=== PATIENT | female | born 1975 | race African-American/Black ===

== ENCOUNTER → 2016-03-30 | Outpatient (CLI) | payer MEDICARE, MEDICAID ==
--- NOTE | 2016-03-31 13:53 | XCELERA REPORT ---
[address] [address] Lower Extremity Venous Evaluation Name: JOSE KRAUSE Age: 40 yrs Gender: Female : 1975 Patient Status: Outpatient Patient Location: Study Date: 03/30/2016 11:47 AM Procedure: Color flow and duplex imaging of the veins of the right lower extremity as well as the left Common Femoral vein. Reason For Study: LLE SWELLING Ordering Physician: SYBIL FLORES Performed By: Taryn Salamanca Right Sided Venous Evaluation Normal vessel filling wall to wall, compression and augmentation as well as Colour flow down to the infrageniculate veins. Difficult to image veins due to body habitus. Left Sided Venous Evaluation The left common femoral vein is fully compressible. Spontaneous and phasic flow is present in the left common femoral vein. Interpretation Summary No duplex evidence of DVT or obstruction in the right lower extremity nor in the left Common Femoral vein. : SYBIL FLORES > Mario Garcia
== END ==
LOC: SP 11:28
PROVIDERS: ATTEND Internal Medicine
DX: R22.41 Localized swelling, mass and lump, right lower limb (principal)
CPT/HCPCS: 93971

== ENCOUNTER → 2016-06-26 | Outpatient (CLI) | payer MEDICARE, MEDICAID | LOC: LAB 13:29 | PROVIDERS: ATTEND Psychiatry & Neurology Psychiatry | DX: F31.4 Bipolar disorder, current episode depressed, severe, without psychotic features (principal); Z79.899 Other long term (current) drug therapy | CPT/HCPCS: 36415; 80156 ==

== ENCOUNTER 2016-12-26 14:34 | Emergency (ER) | payer MEDICARE, MEDICAID ==
[2016-12-26] MEDS ORDERED: LIDOCAINE 1% INJ-PF (10 MG/ML) 30 ML SDV INJ ONE (15:53)
[2016-12-26] MEDS ORDERED: BUPIVACAINE HCL 0.5 % INJ/PF 30 ML SDV INJ ONE (15:53)
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
[2016-12-26 17:05] VITALS: BP 135/80
== END 2016-12-26 17:05 | disposition home or self-care (01) ==
LOC: ER 14:34
PROC: 3E0T3BZ Introduction of Anesthetic Agent into Peripheral Nerves and Plexi, Percutaneous Approach (ICD-10-PCS; principal; 2016-12-26)
DX: R09.81 Nasal congestion (principal); K08.89 Other specified disorders of teeth and supporting structures; R09.89 Other specified symptoms and signs involving the circulatory and respiratory systems; R05 Cough; Z79.899 Other long term (current) drug therapy; F17.210 Nicotine dependence, cigarettes, uncomplicated
CPT/HCPCS: 99283; 64400; J3490

== ENCOUNTER 2017-02-11 23:39 | Emergency (ER) | payer MEDICARE, MEDICAID ==
[2017-02-11 23:44] VITALS: BP 151/80
--- NOTE | 2017-02-11 23:44 | ER Document Report ---
HPI - HPI Patient complains to provider of: tooth pain Onset: Other - december Pain Level: 5 Context: 41-year-old female complaining of worsening dental pain that she has had since December. She has known dental decay and tried to see a dentist on Wednesday and she said they would not be open to help her. Says she has been taking Advil for pain and it is not helping she was unable to sleep last night. She is moaning, crying, and rocking in pain Associated Symptoms: None Exacerbated by: Denies Relieved by: Denies Similar symptoms previously: Yes Recently seen / treated by doctor: No - ROS ROS below otherwise negative: Yes Systems Reviewed and Negative: Yes All other systems reviewed and negative - REPRODUCTIVE LMP: na Reproductive: DENIES: : Past Medical History - General Information source: Patient - Social History Smoking Status: Current Every Day Smoker Frequency of alcohol use: None Drug Abuse: None Lives with: Family Family History: Reviewed & Not Pertinent Neurological Medical History: Reports: Hx Migraine Renal/ Medical History: Denies: Hx Peritoneal Dialysis Musculoskeltal Medical History: Reports Hx Musculoskeletal Deformity, Reports Hx Musculoskeletal Trauma Psychiatric Medical History: Reports: Hx Bipolar Disorder, Hx Depression - mainic Surgical Hx: Negative - Immunizations Immunizations up to date: Yes Hx Diphtheria, Pertussis, Tetanus Vaccination: Yes Vertical Provider Document - CONSTITUTIONAL Agree With Documented VS: Yes Exam Limitations: No Limitations - INFECTION CONTROL TRAVEL OUTSIDE OF THE [place] IN LAST 30 DAYS: No - HEENT HEENT: Normocephalic Notes: decayed cuspids lower right and left, no abscess. - NECK Neck: Supple. negative: Lymphadenopathy-Left, Lymphadenopathy-Right - MUSCULOSKELETAL/EXTREMETIES Musculoskeletal/Extremeties: SHAHNAZ KAGN - NEURO Level of Consciousness: Awake, Alert, Appropriate - DERM Integumentary: Warm, Dry Course - Re-evaluation Re-evalutation: 02/12/17 00:06 Patient states she does not have any pain medication at home and I asked her about the 120 hydrocodone that she gets every month and she said she ran out on February 08 and she should not of run out until February 16. She says she had to take more than usual. She has chronic back pain. Discharge - Discharge Clinical Impression: Pain, dental, Dental decay Condition: Good Disposition: HOME, SELF-CARE Instructions: Clindamycin ([facility]), Toothache ([facility]), Use of [id number] Ibuprofen ([facility]), Topical Lidocaine ([facility]), Dentist Additional Instructions: see the dentist topical lidocaine to lessen the pain antibiotics over the counter motrin to er any fever or swelling Prescriptions: Clindamycin HCl [Cleocin 150 mg Capsule] 300 mg PO TID #42 capsule Referrals: SYBIL FLORES MD [Primary Care Provider] - Follow up as needed
[2017-02-11] MEDS ORDERED: CLINDAMYCIN HCL 150 MG CAPSULE PO ONE (23:59)
[2017-02-11] MEDS ORDERED: LIDOCAINE 2% VISCOUS SOLN 20 ML UDCUP PO ONE (23:59)
== END 2017-02-12 00:44 | disposition home or self-care (01) ==
LOC: ER 23:39
DX: K02.9 Dental caries, unspecified (principal); K08.89 Other specified disorders of teeth and supporting structures; F17.200 Nicotine dependence, unspecified, uncomplicated; M54.9 Dorsalgia, unspecified; G89.29 Other chronic pain; Z91.14 Patient's other noncompliance with medication regimen
CPT/HCPCS: 99282; A9270; J3490

== ENCOUNTER → 2017-03-16 | Outpatient (CLI) | payer MEDICARE, MEDICAID | LOC: RAD 14:35 | PROVIDERS: ATTEND Internal Medicine | DX: R10.84 Generalized abdominal pain (principal) | CPT/HCPCS: 74177; 82565 ==

== ENCOUNTER 2017-12-01 12:14 | Emergency (ER) | payer MEDICAID, MEDICARE ==
[2017-12-01 12:24] VITALS: BP 137/83
--- NOTE | 2017-12-01 13:01 | ER Document Report ---
ED Medical Screen (RME) - General Chief Complaint: Abdominal Pain Stated Complaint: ABDOMINAL PAIN Time Seen by Provider: 12/01/17 12:55 TRAVEL OUTSIDE OF THE [place] IN LAST 30 DAYS: No - HPI Notes: 12/01/17 13:00 Vaginal odor lower abdominal pain stating "smells like something something has " denies any foreign bodies in the vagina denies any sexual intercourse - Related Data Allergies/Adverse Reactions: amoxicillin [Amoxicillin] Allergy (Mild, Verified 12/01/17 12:16) Past Medical History - Social History Chew tobacco use (# tins/day): No Frequency of alcohol use: Occasional Drug Abuse: Marijuana - Past Medical History Cardiac Medical History: Denies: Hx Coronary Artery Disease, Hx Heart Attack, Hx Hypertension Pulmonary Medical History: Denies: Hx Asthma, Hx Bronchitis, Hx COPD, Hx Pneumonia Neurological Medical History: Reports: Hx Migraine. Denies: Hx Cerebrovascular Accident, Hx Seizures Renal/ Medical History: Denies: Hx Peritoneal Dialysis Musculoskeltal Medical History: Denies Hx Arthritis, Reports Hx Musculoskeletal Deformity, Reports Hx Musculoskeletal Trauma Psychiatric Medical History: Reports: Hx Bipolar Disorder, Hx Depression - mainic - Immunizations Immunizations up to date: Yes Hx Diphtheria, Pertussis, Tetanus Vaccination: Yes Review of Systems - Review of Systems Gastrointestinal: Abdominal pain Female Genitourinary: Vaginal odor Physical Exam - Vital signs Vitals: Temp Pulse Resp BP Pulse Ox 98.0 F 75 20 137/83 H 100 12/01/17 12:22 12/01/17 12:22 12/01/17 12:22 12/01/17 12:22 12/01/17 12:22 - Respiratory Respiratory status: No respiratory distress Chest status: Nontender Breath sounds: Normal Chest palpation: Normal - Cardiovascular Rhythm: Regular Heart sounds: Normal auscultation Course - Vital Signs Vital signs: Temp Pulse Resp BP Pulse Ox 98.0 F 75 20 137/83 H 100 12/01/17 12:22 12/01/17 12:22 12/01/17 12:22 12/01/17 12:22 12/01/17 12:22 Doctor's Discharge - Discharge Referrals: SYBIL FLORES MD [Primary Care Provider] - Follow up as needed
[2017-12-01 13:54] LABS: HEMATOCRIT 38.7 % (36.0-47.0); MEAN CORPUSCULAR HEMOGLOBIN 31.7 pg (27.0-33.4); MEAN CORPUSCULAR HGB CONC 33.5 g/dL (32.0-36.0); MEAN CORPUSCULAR VOLUME 95 fl (80-97); PLATELET COUNT 327 10^3/uL (150-450); RED BLOOD COUNT 4.09 10^6/uL (3.72-5.28); RED CELL DISTRIBUTION WIDTH 13.8 % (11.5-14.0); WHITE BLOOD COUNT 9.2 10^3/uL (4.0-10.5)
[2017-12-01 14:03] LABS: ALANINE AMINOTRANSFERASE 15 U/L (9-52); ALBUMIN 4.5 g/dL (3.5-5.0); ALKALINE PHOSPHATASE 72 U/L (38-126); ANION GAP 10 (5-19); ASPARTATE AMINO TRANSFERASE 21 U/L (14-36); BILIRUBIN,DIRECT 0.2 mg/dL (0.0-0.4); BILIRUBIN,TOTAL 0.8 mg/dL (0.2-1.3); BLOOD UREA NITROGEN 12 mg/dL (7-20); CALCIUM 9.5 mg/dL (8.4-10.2); CARBON DIOXIDE 23 mmol/L (22-30); CHLORIDE 106 mmol/L (98-107); GLUCOSE 78 mg/dL (75-110); POTASSIUM 4.1 mmol/L (3.6-5.0); SODIUM 139.2 mmol/L (137-145); TOTAL PROTEIN 7.6 g/dL (6.3-8.2)
[2017-12-01 14:17] LABS: ABSOLUTE LYMPHOCYTES# (MANUAL) 5.5 10^3/uL (0.5-4.7); ABSOLUTE MONOCYTES # (MANUAL) 0.2 10^3/uL (0.1-1.4); ABSOLUTE NEUTROPHILS# (MANUAL) 3.2 10^3/uL (1.7-8.2); BASOPHILS % (MANUAL) 0 % (0-2); EOSINOPHILS % (MANUAL) 3 % (0-6); LYMPHOCYTES % (MANUAL) 59 % (13-45); MONOCYTES % (MANUAL) 2 % (3-13); SEGMENTED NEUTROPHILS % (MAN) 35 % (42-78); TOTAL CELLS COUNTED 100
[2017-12-01 14:18] LABS: PLATELET COMMENT ADEQUATE; RBC MORPHOLOGY COMMENT NORMO-CYTIC/CHROMIC
--- NOTE | 2017-12-01 15:01 | ER Document Report ---
ED GI/ - General Chief Complaint: Abdominal Pain Stated Complaint: ABDOMINAL PAIN Time Seen by Provider: 12/01/17 12:55 Mode of Arrival: Ambulatory Information source: Patient Notes: 42-year-old female presents to ED for complaint of abdominal pain pelvic pain and smells like in her vagina. She denies use of any foreign body usage in her vagina or any sexual intercourse. Alert and oriented respirations regular and unlabored speaking in full sentences. TRAVEL OUTSIDE OF THE [place] IN LAST 30 DAYS: No - HPI Patient complains to provider of: Abdominal pain, Pelvic pain, Vaginal discharge Onset: Other - 4 days Timing/Duration: Gradual Quality of pain: Achy, Sharp, Throbbing Severity at maximum: Moderate Severity in ED: Moderate Pain Level: 4 Location: LLQ, RLQ, Suprapubic, Pelvis Vaginal bleeding (Compared to normal period): None Associated symptoms: Nausea, Urinary frequency, Vaginal discharge Exacerbated by: Movement Relieved by: Denies Similar symptoms previously: Yes Recently seen / treated by doctor: No - Related Data Allergies/Adverse Reactions: amoxicillin [Amoxicillin] Allergy (Mild, Verified 12/01/17 12:16) Past Medical History - General Information source: Patient - Social History Smoking Status: Current Every Day Smoker Chew tobacco use (# tins/day): No Frequency of alcohol use: Occasional Drug Abuse: Marijuana Family History: Reviewed & Not Pertinent Patient has suicidal ideation: No Patient has homicidal ideation: No - Past Medical History Cardiac Medical History: Reports: None Pulmonary Medical History: Reports: None EENT Medical History: Reports: None Neurological Medical History: Reports: Hx Migraine Endocrine Medical History: Reports: None Renal/ Medical History: Reports: None Malignancy Medical History: Reports: None GI Medical History: Reports: None Musculoskeletal Medical History: Reports Hx Musculoskeletal Deformity, Reports Hx Musculoskeletal Trauma Skin Medical History: Reports None Psychiatric Medical History: Reports: Hx Bipolar Disorder, Hx Depression - mainic Traumatic Medical History: Reports: None Infectious Medical History: Reports: None Surgical Hx: Negative Past Surgical History: Reports: None - Immunizations Immunizations up to date: Yes Hx Diphtheria, Pertussis, Tetanus Vaccination: Yes Review of Systems - Review of Systems Constitutional: No symptoms reported EENT: No symptoms reported Cardiovascular: No symptoms reported Respiratory: No symptoms reported Gastrointestinal: No symptoms reported Genitourinary: No symptoms reported Female Genitourinary: No symptoms reported Musculoskeletal: No symptoms reported Skin: No symptoms reported Hematologic/Lymphatic: No symptoms reported Neurological/Psychological: No symptoms reported -: Yes All other systems reviewed and negative Physical Exam - Vital signs Vitals: Temp Pulse Resp BP Pulse Ox 98.0 F 75 20 137/83 H 100 12/01/17 12:22 12/01/17 12:22 12/01/17 12:22 12/01/17 12:22 12/01/17 12:22 Interpretation: Normal - General General appearance: Appears well, Alert - HEENT Head: Normocephalic, Atraumatic Eyes: Normal Pupils: PERRL - Respiratory Respiratory status: No respiratory distress Chest status: Nontender Breath sounds: Normal Chest palpation: Normal - Cardiovascular Rhythm: Regular Heart sounds: Normal auscultation Murmur: No - Abdominal Inspection: Normal Distension: No distension Bowel sounds: Normal Tenderness: Tender Organomegaly: No organomegaly - Genitourinary External exam: Normal Speculum exam: Cervix closed Vaginal bleeding: None Bimanuel exam: Normal - Back Back: Normal, Nontender - Extremities General upper extremity: Normal inspection, Nontender, Normal color, Normal ROM , Normal temperature General lower extremity: Normal inspection, Nontender, Normal color, Normal ROM , Normal temperature, Normal weight bearing. No: Mckenzie's sign - Neurological Neuro grossly intact: Yes Cognition: Normal Orientation: AAOx4 [place] Coma Scale Eye Opening: Spontaneous [place] Coma Scale Verbal: Oriented [place] Coma Scale Motor: Obeys Commands [place] Coma Scale Total: 15 Speech: Normal Motor strength normal: LUE, RUE, LLE, RLE Sensory: Normal - Psychological Associated symptoms: Normal affect, Normal mood - Skin Skin Temperature: Warm Skin Moisture: Dry Skin Color: Normal Course - Re-evaluation Re-evalutation: 12/02/17 01:24 Was given report of chlamydia infection. She was treated with Rocephin and azithromycin. Patient was instructed to follow-up with her primary doctor and to abstain from any sexual intercourse for at least 10 days. Patient was instructed she needed to let her last sexual partner know that she was positive for chlamydia. - Vital Signs Vital signs: Temp Pulse Resp BP Pulse Ox 98.0 F 75 20 137/83 H 100 12/01/17 12:22 12/01/17 12:22 12/01/17 12:22 12/01/17 12:22 12/01/17 12:22 - Laboratory Result Diagrams: 12/01/17 13:05 12/01/17 13:05 Laboratory results interpreted by me: 12/01/17 12/01/17 13:05 14:58 Seg Neuts % (Manual) 35 L Lymphocytes % (Manual) 59 H Monocytes % (Manual) 2 L Abs Lymphs (Manual) 5.5 H Chlamydia DNA (PCR) DETECTED H - Diagnostic Test Radiology reviewed: Image reviewed, Reports reviewed Discharge - Discharge Clinical Impression: Chlamydia infection Uterine fibroid Qualifiers: Uterine leiomyoma location: unspecified location Qualified Code(s): D25.9 - Leiomyoma of uterus, unspecified Condition: Stable Disposition: HOME, SELF-CARE Additional Instructions: Uterine fibroids which she will need to follow-up with your [facility] doctor. Normal treatment for uterine fibroids is ibuprofen or some type of anti- inflammatory such as Aleve or naproxen. You have chlamydia which is a sexually transmitted disease. VAGINITIS: Your exam shows that you have vaginitis, a vaginal infection. The infection can be caused by a many different organisms, including trichomonas or Gardnerella. The usual symptoms are vaginal irritation and discharge. The treatment is usually antibiotics such as Flagyl. Laboratory tests can determine which germ is responsible. Use the medication as prescribed. Because this infection can be transmitted sexually, your sexual partner may need to be checked and treated also. If your physician has not discussed this with you, please check before resuming sexual relations. If a culture shows gonorrhea or chlamydia, the infection must be reported to the health department. Call the doctor if you develop pelvic pain, fever, or problems with urination, or if you don't improve as expected. PELVIC PAIN: There are many causes of pain in the pelvic area. The cause could be the tubes, ovaries, uterus, intestines, appendix, pelvic muscles and connective tissue, or the urinary tract. The cause of your pelvic pain is not clear. However, it seems safe to treat you outside the hospital. If the pain sounds like a temporary problem, we sometimes wait to see if it goes away. Other patients may need additional tests, such as pelvic ultrasound or cultures. Conditions may change. Call us or come back for reexamination if any problems occur, such as: (1) Pain that becomes more severe, steady, or becomes concentrated in one specific area. Also, pain that is more severe with movement or coughing. (2) Vomiting that persists or becomes more frequent. (3) Blood in the vomitus, urine, or bowel movements. Blood in the stool may have a tarry or black appearance. (4) Shaking chills or fever greater than 100 degrees. (5) The abdomen becomes more distended or swollen. (6) Bowel movements cease. (7) Heavy vaginal bleeding. TORADOL INJECTION: You have been given an injection of ketorolac tromethamine (Toradol). This is an excellent, safe drug for pain control. It also has potent antiinflammatory action. You should have significant pain relief within about one hour. Toradol is not addicting and is non-sedating. It does not interfere with driving or work. Call or return if you develop itching, hives, shortness of breath, or rash. CEPHALOSPORINS: An antibiotic of the cephalosporin class has been prescribed. This type of antibiotic covers a wide variety of infections, including those of the skin, lungs, middle ear, and urinary tract. This antibiotic is somewhat similar to the penicillin family. In rare cases , a person who is allergic to penicillin will also be allergic to this medication. If you have had a severe allergic reaction to penicillin, and have not taken this antibiotic since that time, notify your doctor. Antibiotics which cover many germs ("broad spectrum" antibiotics) are more likely to cause diarrhea or "yeast" infections. Women prone to vaginal yeast problems may suffer an attack after taking this antibiotic. In infants, oral thrush (white spots "stuck" on the cheek) or yeast diaper rash may result. See your doctor if these problems occur. Call the doctor at once if you develop hives, itching, shortness of breath , or lightheadedness. AZITHROMYCIN: Azithromycin (Zithromax) is a broad spectrum antibiotic in the same class as erythromycin. It can treat a variety of bacterial infections, but is most frequently used for respiratory infections. Azithromycin is extremely long-lasting. It accumulates in body tissues and continues to kill bacteria for many days. In order to improve absorption, Azithromycin should be taken at least one hour before or two hours after a meal. It does not have the same strong tendency to upset the stomach as erythromycin and is usually very well tolerated. Patients who have had a rash or other true allergic reactions to erythromycin should not take this medication. Call if you develop gastrointestinal distress, severe diarrhea, rash, hives, itching, or shortness of breath. FOLLOW-UP CARE: If you have been referred to a physician for follow-up care, call the physician s office for an appointment as you were instructed or within the next two days. If you experience worsening or a significant change in your symptoms, notify the physician immediately or return to the Emergency Department at any time for re-evaluation. Forms: Elevated Blood Pressure, Smoking Cessation Education Referrals: SYBIL FLORES MD [Primary Care Provider] - Follow up as needed [facility] [Provider Group] - Follow up as needed
[2017-12-01 15:23] LABS: APPEARANCE,URINE CLEAR; BACTERIA (WET MOUNT) 4+ BACTERIA SEEN; BILIRUBIN,URINE NEGATIVE (NEGATIVE); COLOR,URINE COLORLESS; EPITHELIALS (WET MOUNT) 3+ EPITHELIALS SEEN; GLUCOSE, URINE NEGATIVE (NEGATIVE); KETONES,URINE NEGATIVE (NEGATIVE); LEUKOCYTE ESTERASE,URINE NEGATIVE (NEGATIVE); NITRITE,URINE NEGATIVE (NEGATIVE); PROTEIN,URINE NEGATIVE (NEGATIVE); RBCS (WET MOUNT) NO RBCS SEEN; T.VAGINALIS (WET MOUNT) NO TRICHOMONAS SEEN; URINE SPECIFIC GRAVITY 1.003; UROBILINOGEN,URINE NEGATIVE mg/dL (<2.0); WBCS (WET MOUNT) 1+ WBCS SEEN; YEAST (WET MOUNT) NO YEAST SEEN
[2017-12-01 15:36] LABS: URINE AMPHETAMINES SCREEN NEGATIVE; URINE BARBITURATES SCREEN NEGATIVE; URINE BENZODIAZEPINES SCREEN NEGATIVE; URINE COCAINE SCREEN NEGATIVE; URINE MARIJUANA (THC) SCREEN NEGATIVE; URINE METHADONE SCREEN NEGATIVE; URINE PHENCYCLIDINE SCREEN NEGATIVE
[2017-12-01] MEDS ORDERED: ACETAMINOPHEN 325 MG TABLET PO ONE (16:20)
--- NOTE | 2017-12-01 16:32 | RADIOLOGY REPORT (SQ) ---
EXAM DESCRIPTION: U/S NON-OB PELVIS TV W/O DOP COMPLETED DATE/TIME: 12/01/2017 4:22 pm REASON FOR STUDY: pelvic and vaginal pain COMPARISON: None. TECHNIQUE: Dynamic and static grayscale images acquired of the pelvis via transvaginal approach and recorded on PACS. Additional selected color Doppler and spectral images recorded. LIMITATIONS: None. FINDINGS: UTERUS: There is a 15 mm fibroid. ENDOMETRIAL STRIPE: No focal or generalized thickening. No masses. CERVIX: 2.1 cm. No nabothian cysts. RIGHT OVARY AND DOPPLER: Normal size. No worrisome masses. Normal arterial vascular flow without evid ence for torsion. LEFT OVARY AND DOPPLER: Normal size. No worrisome masses. Normal arterial vascular flow without evide nce for torsion. There is a 13 mm cyst. FREE FLUID: None noted. OTHER: No other significant finding. MEASUREMENTS: UTERUS: 7.1 x 4.5 x 5.1 cm. ENDOMETRIAL STRIPE: 4 mm. RIGHT OVARY: 2.2 x 1.7 x 2.8 cm. LEFT OVARY: 2.5 x 1.3 cm. IMPRESSION: A small uterine fibroid is present. The study is otherwise normal. TECHNICAL DOCUMENTATION: JOB ID: [id number] [employer]- All Rights Reserved Rev-06/25 Reading location - IP/workstation name: [email or web address]
[2017-12-01] MEDS ORDERED: KETOROLAC TROMETHAMINE 60 MG/2 ML SDV IM ONE (16:34)
[2017-12-01 16:43] LABS: CHLAM PCR DETECTED (NOT DETECT); GON PCR NOT DETECTED (NOT DETECT)
[2017-12-01] MEDS ORDERED: AZITHROMYCIN 250 MG TABLET PO ONE (17:04)
[2017-12-01] MEDS ORDERED: LIDOCAINE 1% INJ-PF (10 MG/ML) 30 ML SDV INJ ONE (17:04)
[2017-12-01] MEDS ORDERED: CEFTRIAXONE INJ 250 MG VIAL IM ONE (17:04)
== END 2017-12-01 17:16 | disposition home or self-care (01) ==
LOC: ER 12:14
DX: A74.9 Chlamydial infection, unspecified (principal); D25.9 Leiomyoma of uterus, unspecified; R10.9 Unspecified abdominal pain; R10.2 Pelvic and perineal pain; N89.8 Other specified noninflammatory disorders of vagina; R11.0 Nausea; R35.0 Frequency of micturition
CPT/HCPCS: 99284; 96372; 36415; 87210; 84702; 85025; 80053; 81001; 80307; 87491; 87591; 76830; A9270; J1885; J3490; J0696

== ENCOUNTER → 2018-02-17 | Outpatient (CLI) | payer MEDICAID, MEDICARE ==
--- NOTE | 2018-02-17 12:07 | WOMENS IMAGING REPORT ---
EXAM DESCRIPTION: 3D SCREENING MAMMO BILAT COMPLETED DATE/TIME: 02/17/2018 9:51 am REASON FOR STUDY: ROUTINE SCREENING MAMMOGRAM Z12.31 Z12.31 ENCNTR SCREEN MAMMOGRAM FOR MALIGNANT N EOPLASM OF DEQUAN COMPARISON: None. TECHNIQUE: Standard craniocaudal and mediolateral oblique views of each breast recorded using digita l acquisition and breast tomosynthesis. LIMITATIONS: None. FINDINGS: No masses, calcifications or architectural distortion. No areas of suspicion. Read with the assistance of CAD. .[facility] R2 Cenova Version 1.3 .[facility] - R2 Cenova Version 1.3 .[facility] - R2 Cenova Version 2.4 .[facility] - R2 Cenova Version 2.4 .[facility] - R2 Patient Registration Manager Version 9.2 IMPRESSION: NORMAL MAMMOGRAM. BIRADS 1. BREAST DENSITY: b. There are scattered areas of fibroglandular density. BIRAD: 1 NEGATIVE RECOMMENDATION: ROUTINE SCREENING COMMENT: The patient has been notified of the results by letter per SA requirements. Additional no tification policies are in place for contacting patient with suspicious or incomplete findings. Quality ID #[id number]: The [employer] recommends an annual screening mammogram for women aged 40 years or over. This facility utilizes a reminder system to ensure that all patients receive reminder letters, and/or direct phone calls for appointments. This includes reminders for routine scr eening mammograms, diagnostic mammograms, or other Breast Imaging Interventions when appropriate. Th is patient will be placed in the appropriate reminder system. The [employer] (ACR) has developed recommendations for screening MRI of the breast s in certain patient populations, to be used in conjunction with mammography. Breast MRI surveillanc e may be appropriate for women with more than 20% lifetime risk of developing breast cancer as deter mined by genetic testing, significant family history of the disease, or history of mantle radiation f or Hodgkins Disease. ACR Practice Guidelines 2008. DBT Technology DBT is a type of tomographic mammography. With conventional mammography, overlapping breast tissue ma y make lesions difficult to detect, even with good compression. DBT uses an x-ray tube that rotates a round the breast, taking images at different angles. These images are then combined to create thin sl ices of the breast that the radiologist can view as a 3D reconstruction. The [employer] unit can perform full-field digital mammograms (2D imaging); or DBT (3D imaging); or both, in a combination mode that quickly performs both the mammogram and the tomosynthesis scan while the breast is still compressed. PQRS 6045F: Fluoroscopic imaging is not utilized for breast tomosynthesis. TECHNICAL DOCUMENTATION: FINDING NUMBER: (1) ASSESSMENT: (1) JOB ID: [id number] [employer]- All Rights Reserved Reading location - IP/workstation name: [facility]-2
== END ==
LOC: WI 09:49
PROVIDERS: ATTEND Student in an Organized Health Care Education/Training Program
DX: Z12.31 Encounter for screening mammogram for malignant neoplasm of breast (principal)
CPT/HCPCS: 77063; 77067

== ENCOUNTER 2019-05-12 14:44 | Emergency (ER) | payer MEDICARE, MEDICAID ==
[2019-05-12] MEDS ORDERED: TETRACAINE HCL 0.5% OPH SOLN 4 ML OD ONE (14:52)
--- NOTE | 2019-05-12 14:54 | ER Document Report ---
HPI - HPI Patient complains to provider of: right eye irritation Time Seen by Provider: 05/12/19 14:48 Onset: Last week Onset/Duration: Sudden Quality of pain: Burning Pain Level: 3 Context: 43-year-old female presents emergency department with complaints of right eye irritation. Reports she had a stye last week and it popped. She reports now she is having burning to the right eye. She was able to drive herself here. No other complaints such as fever vomiting diarrhea. Associated Symptoms: None Exacerbated by: Denies Relieved by: Denies Similar symptoms previously: No Recently seen / treated by doctor: No - EENT EENT: REPORTS: Eye problems - REPRODUCTIVE Reproductive: DENIES: : Past Medical History - General Information source: Patient - Social History Smoking Status: Current Every Day Smoker Chew tobacco use (# tins/day): No Frequency of alcohol use: None Drug Abuse: None Lives with: Family Family History: Reviewed & Not Pertinent Patient has suicidal ideation: No Patient has homicidal ideation: No - Past Medical History Cardiac Medical History: Denies: Hx Coronary Artery Disease, Hx Heart Attack, Hx Hypertension Pulmonary Medical History: Denies: Hx Asthma, Hx Bronchitis, Hx COPD, Hx Pneumonia Neurological Medical History: Reports: Hx Migraine. Denies: Hx Cerebrovascular Accident, Hx Seizures Renal/ Medical History: Denies: Hx Peritoneal Dialysis Musculoskeletal Medical History: Denies Hx Arthritis, Reports Hx Fibromyalgia, Reports Hx Muscular Dystrophy, Reports Hx Musculoskeletal Deformity, Reports Hx Musculoskeletal Trauma Psychiatric Medical History: Reports: Hx Bipolar Disorder, Hx Depression - mainic - Immunizations Immunizations up to date: Yes Hx Diphtheria, Pertussis, Tetanus Vaccination: Yes Vertical Provider Document - CONSTITUTIONAL Agree With Documented VS: Yes Exam Limitations: No Limitations General Appearance: WD/WN, Mild Distress - moaning - INFECTION CONTROL TRAVEL OUTSIDE OF THE [place] IN LAST 30 DAYS: No - HEENT HEENT: Atraumatic, Normocephalic - NECK Neck: Supple - RESPIRATORY Respiratory: No Respiratory Distress - MUSCULOSKELETAL/EXTREMETIES Musculoskeletal/Extremeties: SHAHNAZ KANG - NEURO Level of Consciousness: Awake, Alert, Appropriate Motor/Sensory: No Motor Deficit - DERM Integumentary: Warm, Dry Course - Vital Signs Vital signs: Temp Pulse Resp BP Pulse Ox 97.8 F 89 16 116/87 H 98 05/12/19 14:51 05/12/19 14:51 05/12/19 14:51 05/12/19 14:51 05/12/19 14:51 Discharge - Discharge Clinical Impression: Irritation of right eye Condition: Stable Disposition: HOME, SELF-CARE Referrals: SAV NORMAN MD [Primary Care Provider] - Follow up as needed
--- NOTE | 2019-05-12 15:15 | ER Document Report ---
ED Medical Screen (RME) - General Chief Complaint: Eye Problem Stated Complaint: EYE PAIN Time Seen by Provider: 05/12/19 14:48 Primary Care Provider: SAV NORMAN MD [Primary Care Provider] - Follow up as needed Mode of Arrival: Ambulatory Information source: Patient Notes: 43-year-old female presents emergency department with complaints of right eye irritation. Reports she had a stye last week and it popped. She reports now she is having burning to the right eye for two days. She was able to drive herself here. Does not wear contacts. No other complaints such as fever vomiting diarrhea. Patient is not morning very loud. She is washing her eye in the sink. I did instruct her to lay on the bed several times so I could apply the tetracaine for her pain. She became very irritated with me. Tetracaine applied to right eye the patient did report some relief. no obvious abrasion noted but was very difficult to assess patient. Patient will need slit-lamp evaluation. I have greeted and performed a rapid initial assessment of this patient. A comprehensive ED assessment and evaluation of the patient, analysis of test results and completion of the medical decision making process will be conducted by additional ED providers. TRAVEL OUTSIDE OF THE [place] IN LAST 30 DAYS: No - Related Data Allergies/Adverse Reactions: amoxicillin [Amoxicillin] Allergy (Mild, Verified 05/12/19 14:48) Penicillins Allergy (Verified 05/12/19 14:52) Past Medical History - Social History Chew tobacco use (# tins/day): No Frequency of alcohol use: None Drug Abuse: None - Past Medical History Cardiac Medical History: Denies: Hx Coronary Artery Disease, Hx Heart Attack, Hx Hypertension Pulmonary Medical History: Denies: Hx Asthma, Hx Bronchitis, Hx COPD, Hx Pneumonia Neurological Medical History: Reports: Hx Migraine. Denies: Hx Cerebrovascular Accident, Hx Seizures Renal/ Medical History: Denies: Hx Peritoneal Dialysis Musculoskeltal Medical History: Denies Hx Arthritis, Reports Hx Fibromyalgia, Reports Hx Muscular Dystrophy, Reports Hx Musculoskeletal Deformity, Reports Hx Musculoskeletal Trauma Psychiatric Medical History: Reports: Hx Bipolar Disorder, Hx Depression - mainic - Immunizations Immunizations up to date: Yes Hx Diphtheria, Pertussis, Tetanus Vaccination: Yes Physical Exam - Vital signs Vitals: Temp Pulse Resp BP Pulse Ox 97.8 F 89 16 116/87 H 98 05/12/19 14:51 05/12/19 14:51 05/12/19 14:51 05/12/19 14:51 05/12/19 14:51 Course - Vital Signs Vital signs: Temp Pulse Resp BP Pulse Ox 97.8 F 89 16 116/87 H 98 05/12/19 14:51 05/12/19 14:51 05/12/19 14:51 05/12/19 14:51 05/12/19 14:51 Doctor's Discharge - Discharge Clinical Impression: Irritation of right eye Condition: Stable Disposition: HOME, SELF-CARE Referrals: SAV NORMAN MD [Primary Care Provider] - Follow up as needed
[2019-05-12 18:48] VITALS: BP 118/85
--- NOTE | 2019-05-12 20:41 | ER Document Report ---
Entered by PAM MONTEJO SCRIBE 05/12/19 1628 Acting as scribe for:ARA WU MD ED General - General Chief Complaint: Eye Problem Stated Complaint: EYE PAIN Time Seen by Provider: 05/12/19 14:48 Primary Care Provider: IRENE ERICKSON MD [ACTIVE STAFF] - Follow up in 3-5 days (acute conjunctivitis right eye with corneal abrasion over central cornea. Follow up in 1 to 3 days, or return to Emergency depat if worsening.) SAV NORMAN MD [ACTIVE STAFF] - Follow up as needed Mode of Arrival: Ambulatory Information source: Patient Notes: This 43-year-old female presents to the emergency department complaining of right eye pain that began two days. Patient explains that she had a stye last week which popped. Patient describes the pain as burning. Patient denies fever, vomiting and diarrhea. Patient reports photosensitivity. TRAVEL OUTSIDE OF THE [place] IN LAST 30 DAYS: No - Related Data Allergies/Adverse Reactions: amoxicillin [Amoxicillin] Allergy (Mild, Verified 05/12/19 14:48) Penicillins Allergy (Verified 05/12/19 14:52) Past Medical History - General Information source: Patient - Social History Smoking Status: Current Every Day Smoker Cigarette use (# per day): Yes Chew tobacco use (# tins/day): No Frequency of alcohol use: None Drug Abuse: None Family History: Reviewed & Not Pertinent Patient has suicidal ideation: No Patient has homicidal ideation: No Neurological Medical History: Reports: Hx Migraine Musculoskeletal Medical History: Reports Hx Fibromyalgia, Reports Hx Muscular Dystrophy, Reports Hx Musculoskeletal Deformity, Reports Hx Musculoskeletal Trauma Psychiatric Medical History: Reports: Hx Bipolar Disorder, Hx Depression - manic Surgical Hx: Negative - Immunizations Immunizations up to date: Yes Hx Diphtheria, Pertussis, Tetanus Vaccination: Yes Review of Systems - Review of Systems Constitutional: See HPI. denies: Fever EENT: See HPI - Right, Eye pain Cardiovascular: No symptoms reported Respiratory: No symptoms reported Gastrointestinal: See HPI. denies: Diarrhea, Nausea, Vomiting Genitourinary: No symptoms reported Female Genitourinary: No symptoms reported Musculoskeletal: No symptoms reported Skin: See HPI, Change in color - right eye Hematologic/Lymphatic: No symptoms reported Neurological/Psychological: No symptoms reported -: Yes All other systems reviewed and negative Physical Exam - Vital signs Vitals: Temp Pulse Resp BP Pulse Ox 97.8 F 89 16 116/87 H 98 05/12/19 14:51 05/12/19 14:51 05/12/19 14:51 05/12/19 14:51 05/12/19 14:51 - Notes Notes: Physical Exam: General: Alert, appears uncomfortable. HEENT: Normocephalic. PERRL. Extraocular movements intact. Oropharynx clear. Right eye is swollen with increased tearing. Right eye is photosensitive. Neck: Supple. Non-tender. Respiratory: No respiratory distress. Clear and equal breath sounds bilaterally. Cardiovascular: Regular rate and rhythm. Abdominal: Normal Inspection. Non-tender. No distension. Normal Bowel Sounds. Back: No gross abnormalities. Extremities: Moves all four extremities. Upper extremities: Normal inspection. Normal ROM. Lower extremities: Normal inspection. No edema. Normal ROM. Neurological: Normal cognition. AAOx4. Normal speech. Psychological: Normal affect. Normal Mood. Skin: Warm. Dry. Normal color. - HEENT Head: Normocephalic, Atraumatic Eyes: Normal Conjunctiva: Injected, Other - Lower lid swelling. Cornea: Corneal abrasion, Flourescein stain uptake, Other - No foreign body seen Extraocular movements intact: Yes Eyelashes: Normal Pupils: PERRL Left intraocular pressure: 7 Visual blankenship normal: No - Patient either uncooperative or or did not feel like participating in [employer] Course - Re-evaluation Re-evalutation: 05/12/19 20:34 Patient complains of right eye pain with increased tearing and mucus drainage as she reported. Patient states the problem began yesterday denies any trauma. Patient does not wear contact lenses. 05/12/19 20:40 Patient advised to to obtain the eyedrops that were prescribed TobraDex eyedrops. Patient agreed to purchase eyedrops and to apply them as directed. Patient also advised and strongly encouraged to follow-up with ophthalmology or return to the emergency department if there is any worsening vision or further eye problems. - Vital Signs Vital signs: Temp Pulse Resp BP Pulse Ox 98.0 F 88 16 118/85 100 05/12/19 18:44 05/12/19 18:44 05/12/19 18:44 05/12/19 18:44 05/12/19 18:44 Procedures - Eye Procedure Right Eye Irrigated w/ Saline (ccs): 20 Alcaine Drops Administered: Yes Fluorescein applied: Right Slit lamp used: No Notes: 05/12/19 20:37 Tonometer used to test globe anterior pressure on 2 measurements patient is tonometer score was 7. Discharge - Discharge Clinical Impression: Irritation of right eye, Conjunctivitis, Right corneal abrasion Condition: Stable Disposition: HOME, SELF-CARE Instructions: Conjunctivitis ([facility]), Corneal Abrasion ([facility]), Eyedrop Use ([facility]) Prescriptions: Tramadol HCl [Ultram 50 mg Tablet] 50 mg PO Q4HP PRN #8 tab PRN Reason: Ibuprofen [Motrin 800 mg Tablet] 800 mg PO Q8H PRN #15 tab PRN Reason: pain Tobramycin Sulfate/Dexameth [Tobradex Oph Drops 2.5 Ml Bottle] 2 drop .ROUTE ASDIR PRN 7 Days #1 bottle PRN Reason: Referrals: SAV NORMAN MD [ACTIVE STAFF] - Follow up as needed IRENE ERICKSON MD [ACTIVE STAFF] - Follow up in 3-5 days (acute conjunctivitis right eye with corneal abrasion over central cornea. Follow up in 1 to 3 days, or return to Emergency depat if worsening.) I personally performed the services described in the documentation, reviewed and edited the documentation which was dictated to the scribe in my presence, and it accurately records my words and actions.
== END 2019-05-12 18:44 | disposition home or self-care (01) ==
LOC: ER 14:44
DX: S05.01XA Injury of conjunctiva and corneal abrasion without foreign body, right eye, initial encounter (principal); H10.9 Unspecified conjunctivitis; X58.XXXA Exposure to other specified factors, initial encounter; Y93.9 Activity, unspecified; F17.210 Nicotine dependence, cigarettes, uncomplicated; Z88.0 Allergy status to penicillin
CPT/HCPCS: 99283; J3490

== ENCOUNTER 2019-08-23 19:59 | Emergency (ER) | payer MEDICARE, MEDICAID ==
[2019-08-23 20:09] VITALS: BP 128/78
--- NOTE | 2019-08-23 21:31 | ER Document Report ---
ED Medical Screen (RME) - General Chief Complaint: Vaginal Bleeding Stated Complaint: VAGINAL BLEEDING 12 Time Seen by Provider: 08/23/19 21:23 Primary Care Provider: DALIA DEY MD [Primary Care Provider] - Follow up as needed Mode of Arrival: Ambulatory Information source: Patient TRAVEL OUTSIDE OF THE [place] IN LAST 30 DAYS: No - HPI Notes: 08/23/19 21:29 43-year-old female 4 para 3 who is 3 months presents to the emergency room with vaginal bleeding that started approximately 2 hours ago with clots. States that she went to the bathroom and there was blood in the toilet. Reports lower abdominal cramping. [id number] medications been tried. Reports worse with time, nothing makes better. Denies any fevers or chills. Denies any trauma. Denies any chest pain or shortness of breath. I have greeted and performed a rapid initial assessment of this patient. A comprehensive ED assessment and evaluation of the patient, analysis of test results and completion of the medical decision making process will be conducted by additional ED providers. PHYSICAL EXAMINATION: GENERAL: Well-appearing, well-nourished and in no acute distress. CV: s1, s2 regular LUNGS: No respiratory distress abd: lower pelvic pain, no cva tenderness appreciated Musculoskeletal: Normal range of motion NEUROLOGICAL: Normal speech, normal gait. SKIN: Warm, Dry, normal turgor, no rashes or lesions noted. - Related Data Allergies/Adverse Reactions: amoxicillin [Amoxicillin] Allergy (Mild, Verified 08/23/19 21:20) Penicillins Allergy (Verified 08/23/19 21:20) Home Medications: PRE-NATALS. ASA. INSULIN Past Medical History - Social History Frequency of alcohol use: None Drug Abuse: None - Past Medical History Cardiac Medical History: Denies: Hx Coronary Artery Disease, Hx Heart Attack, Hx Hypertension Pulmonary Medical History: Denies: Hx Asthma, Hx Bronchitis, Hx COPD, Hx Pneumonia Neurological Medical History: Reports: Hx Migraine. Denies: Hx Cerebrovascular Accident, Hx Seizures Renal/ Medical History: Denies: Hx Peritoneal Dialysis Musculoskeltal Medical History: Denies Hx Arthritis, Reports Hx Fibromyalgia, Reports Hx Muscular Dystrophy, Reports Hx Musculoskeletal Deformity, Reports Hx Musculoskeletal Trauma Psychiatric Medical History: Reports: Hx Bipolar Disorder, Hx Depression - manic - Immunizations Immunizations up to date: Yes Hx Diphtheria, Pertussis, Tetanus Vaccination: Yes Physical Exam - Vital signs Vitals: Temp Pulse Resp BP Pulse Ox 99.0 F 85 18 128/78 H 99 08/23/19 20:08 08/23/19 20:08 08/23/19 20:08 08/23/19 20:08 08/23/19 20:08 Course - Vital Signs Vital signs: Temp Pulse Resp BP Pulse Ox 99.0 F 85 18 128/78 H 99 08/23/19 21:20 08/23/19 20:08 08/23/19 20:08 08/23/19 20:08 08/23/19 20:08 Doctor's Discharge - Discharge Referrals: DALIA DEY MD [Primary Care Provider] - Follow up as needed
[2019-08-23 23:13] LABS: APPEARANCE,URINE CLEAR; BILIRUBIN,URINE NEGATIVE (NEGATIVE); COLOR,URINE YELLOW; GLUCOSE, URINE NEGATIVE (NEGATIVE); KETONES,URINE NEGATIVE (NEGATIVE); LEUKOCYTE ESTERASE,URINE NEGATIVE (NEGATIVE); NITRITE,URINE NEGATIVE (NEGATIVE); PROTEIN,URINE NEGATIVE (NEGATIVE); URINE SPECIFIC GRAVITY 1.024; UROBILINOGEN,URINE NEGATIVE mg/dL (<2.0)
--- NOTE | 2019-08-23 23:30 | RADIOLOGY REPORT (SQ) ---
EXAM DESCRIPTION: US LESS THAN 14 WEEKS COMPLETED DATE/TME: 08/23/2019 21:28 CLINICAL HISTORY: 43 years, Female, vaginal bleeding x 3 hours ago, 3m COMPARISON: Prior study from 12/01/2017 TECHNIQUE: Axial 2-D grayscale images of the pelvis were acquired. Doppler was utilized. LIMITATIONS: None. FINDINGS: Uterus measures 12.1 x 8.9 x 8.3 cm in size. A focus of hypoechogenicity is noted about the uterine fundus measuring 2.6 x 2.2 x 2.0 cm in size, indicative of a fundal fibroid. In addition, there is a small amount of hypoechogenicity located about the periphery of the gestational sac measuring 2.7 x 0.8 x 3.5 cm in size, suspicious for perigestational hemorrhage. [place]-rump length is 6.33 cm (estimated gestational age based on crown-rump length is 12 weeks and 5 days) Mean sac diameter is 7.08 cm (estimated gestational age based on mean sac diameter is 13 weeks and 5 days) heart rate is 153 bpm Estimated date of delivery is 03/01/2020 Cervix is closed, measuring 2.9 cm in length. Neither ovary was visualized. IMPRESSION: Single live intrauterine , as above described. Suspect small perigestational hematoma measuring 2.7 x 0.8 x 3.5 cm in size. Fibroid uterus. copyright 2010 [employer]- All Rights Reserved
[2019-08-24 00:03] LABS: ABSOLUTE BASOPHILS # (AUTO) 0.1 10^3/uL (0.0-0.2); ABSOLUTE EOSINOPHILS # (AUTO) 0.2 10^3/uL (0.0-0.6); ABSOLUTE LYMPHOCYTES (AUTO) 3.2 10^3/uL (0.5-4.7); ABSOLUTE MONOCYTES (AUTO) 0.5 10^3/uL (0.1-1.4); BASOPHILS % (AUTO) 0.6 % (0-2); EOSINOPHILS % (AUTO) 1.8 % (0-6); HEMOGLOBIN 11.8 g/dL (12.0-15.5); LYMPHOCYTES % (AUTO) 32.1 % (13-45); MEAN CORPUSCULAR HEMOGLOBIN 29.7 pg (27.0-33.4); MEAN CORPUSCULAR HGB CONC 32.7 g/dL (32.0-36.0); MEAN CORPUSCULAR VOLUME 91 fl (80-97); MONOCYTES % (AUTO) 4.8 % (3-13); PLATELET COUNT 298 10^3/uL (150-450); RED BLOOD COUNT 3.97 10^6/uL (3.72-5.28); RED CELL DISTRIBUTION WIDTH 14.2 % (11.5-14.0); SEGMENTED NEUTROPHILS % (AUTO) 60.7 % (42-78); TOTAL CELLS COUNTED % (AUTO) 100 %; WHITE BLOOD COUNT 9.9 10^3/uL (4.0-10.5)
[2019-08-24 00:10] LABS: ALBUMIN 3.9 g/dL (3.5-5.0); ALKALINE PHOSPHATASE 76 U/L (38-126); ANION GAP 5 (5-19); ASPARTATE AMINO TRANSFERASE 19 U/L (14-36); BILIRUBIN,TOTAL 0.1 mg/dL (0.2-1.3); BLOOD UREA NITROGEN 11 mg/dL (7-20); CALCIUM 10.2 mg/dL (8.4-10.2); CARBON DIOXIDE 26 mmol/L (22-30); CHLORIDE 102 mmol/L (98-107); GLUCOSE 150 mg/dL (75-110); POTASSIUM 4.1 mmol/L (3.6-5.0)
== END 2019-08-24 02:13 | disposition left against medical advice (07) ==
LOC: ER 19:59
DX: Z53.20 Procedure and treatment not carried out because of patient's decision for unspecified reasons (principal); O46.91 Antepartum hemorrhage, unspecified, first trimester; O26.891 Other specified pregnancy related conditions, first trimester; R10.30 Lower abdominal pain, unspecified; Z3A.12 12 weeks gestation of pregnancy; Z88.0 Allergy status to penicillin; Z79.4 Long term (current) use of insulin
CPT/HCPCS: 36415; 76801; 80053; 81001; 83690; 84702; 85025; 86900; 86901; 99281